=== PATIENT | female | born 1985 | race Caucasian/White ===

== ENCOUNTER 2017-02-28 21:34 | Inpatient (IN) | payer OTHER ==
--- NOTE | ~2017-02-28 | HP ---
Unit #: [id number] #: [id number] Patient: HEYDI LONDONO [id number] [place] [address] [id number] MR#: [id number] NAME: HEYDI LONDONO ROOM: P208 Age: 31 Sex: F Admission Date: 02/28/2017 : 1985 Attending Physician: Nav Hong M.D. Admitting Physician: Nav Hong M.D. Primary Care Physician: Primary Care Physician No HISTORY AND PHYSICAL HISTORY OF PRESENT ILLNESS Heydi is a 31 year old admitted to [address] [place] [address] because of her polysubstance abuse which includes snorting meth and heroin. PAST MEDICAL HISTORY Long history of poly-illicit substance abuse to include methamphetamine and heroin. PAST SURGICAL HISTORY Tubal ligation. ALLERGIES No known drug allergies. SOCIAL HISTORY Smokes less than 1 pack per day. Denies alcohol. Admits to a long history of illicit substance abuse. FAMILY HISTORY Medically noncontributory. REVIEW OF SYSTEMS CONSTITUTIONAL: No fever or chills. HEENT: Denies any sore throat, ear pain or runny nose. CARDIOVASCULAR: Denies chest pain, irregular heart rhythm or palpitations. CHEST: Denies shortness of breath or cough. No hemoptysis. GASTROINTESTINAL: Denies nausea, vomiting, diarrhea or chronic constipation. ENDOCRINE: Denies history of increased thirst or urination. No recent significant weight loss or gain. GENITOURINARY: Denies dysuria, frequency, or hematuria. SKIN: Denies any rashes. HEMATOLOGIC: Denies history of increased bleeding or bruising. MUSCULOSKELETAL: Denies any hot, swollen joints. No generalized muscle pain. NEUROLOGIC: Denies problems with vision or speech. No frequent, severe headaches. No numbness, tingling or weakness in any extremities. Denies loss of bladder or bowel control. CURRENT MEDICATIONS Detox protocol. PHYSICAL EXAMINATION Unit #: [id number] #: [id number] Patient: HEYDI LONDONO GENERAL: Alert, well-nourished, in no apparent distress. VITAL SIGNS: Blood pressure 115/76, heart rate 80, respirations 16, temperature 98.6. WEIGHT: 125. HEIGHT: 5 feet 0 inches. SKIN: Warm and dry without rash or lesion. HEENT: Normocephalic. TMs not viewed. Oral and nasal passages clear. Conjunctivae clear. PERRLA. EOMs intact. NECK: Supple without lymphadenopathy or thyromegaly. HEART: Regular rate and rhythm without murmur. LUNGS: Clear. ABDOMEN: Soft, nontender. : Not done. EXTREMITIES: No evidence of cyanosis, clubbing or edema. Moves all without focal deficit. NEUROLOGICAL: Grossly within normal limits. Cranial Nerves: II: Visual rashid are intact. III, IV AND : Extraocular movements are intact. Pupils are equal, round and reactive to light. V: Facial sensation is grossly normal. VII: Facial movements and expression are normal. VIII: Auditory acuity grossly intact. IX, X: Uvula is midline. Phonation is normal. XI: Patient shrugs shoulders and turns head normally. XII: Tongue protrudes in the midline. Sensory and Motor Function: Sensory and motor sensation is grossly normal. Motor: moves all extremities well. Coordination: Gait is normal. Deep Tendon Reflexes: Intact. IMPRESSION Psychiatric admission. RECOMMENDATIONS PSYCHIATRIC: Per psychiatrist. MEDICAL: See no contraindications to participate in facility's activities. MEDICAL PROGNOSIS Good. MEDICAL CONDITION Stable. Dictated by... Faiza Slaughter P.A.-C. for Iesha Arevalo/abdi TD: 03/01/2017 20:14 JOB #: [id number] Unit #: [id number] #: [id number] Patient: HEYDI LONDONO HISTORY AND PHYSICAL Page 1 of 1 X Faiza Slaughter HISTORY AND PHYSICAL
--- NOTE | ~2017-02-28 | PA ---
Unit #: [id number] #: [id number] Patient: URBAN LONDONO [id number] [place] [address] [id number] MR#: [id number] NAME: URBAN LONDONO ROOM: P208 Age: 31 Sex: F Admission Date: 02/28/2017 : 1985 Date of Assessment: 03/01/2017 Attending Physician: Nav Hong M.D. Admitting Physician: Nav Hong M.D. Primary Care Physician: Primary Care Physician No PSYCHIATRIC ASSESSMENT IDENTIFYING INFORMATION The patient is a 31-year-old white female admitted to the care of Dr. Hong with a history of methamphetamine and heroin abuse. CHIEF COMPLAINT "Tired of living like this." INFORMANT(S) Patient, reliability is good. HISTORY OF PRESENT ILLNESS The patient is a 31-year-old white female with no prior history of chemical dependence or other psychiatric treatment. She is admitted reporting history of methamphetamine and heroin abuse both (1) __ intranasal insufflation. The patient denies any history of intravenous drug use. The patient reports that she is "tired of living like this." Her boyfriend is currently (2) __ also uses. He is currently an inpatient at this facility also. The patient reports no current suicidal or homicidal ideation or recent changes in mood, sleep, or appetite. She does not work outside the home. She denies any history of intravenous drug use and denies use of psychoactive substances apart from those named previously as well as tobacco. PAST PSYCHIATRIC HISTORY As above. PAST MEDICAL HISTORY Noncontributory. MEDICATIONS None. ALLERGIES None. FAMILY HISTORY Noncontributory. SOCIAL HISTORY The patient lives with her mother and boyfriend who is also a heroin addict. She is not presently employed and is a smoker. MENTAL STATUS EXAMINATION Unit #: [id number] #: [id number] Patient: URBAN LONDONO Examination at this time reveals the patient to be a thin white female appearing her stated age. She appear to be in significant physical distress related to opioid withdrawal. She is alert, oriented in all spheres. Her mood is mildly dysphoric, her affect constricted. Speech is generally well coherent. There are no gross deficits in memory or cognition noted. Intelligence is judged to be in the average range based on fund of knowledge. The patient is cooperative throughout the interview. She is currently denying suicidal or homicidal ideation or psychotic features. Judgment and insight appear to be intact. ASSETS AND LIABILITIES The patient's assets: Motivation for change. Liabilities: None noted. DIAGNOSTIC IMPRESSION 1. Opioid use disorder. 2. Methamphetamine use disorder. TREATMENT PLAN The patient remains hospitalized for safety and stabilization. She has been placed on routine detoxification protocol for opioids. Dr. Hong will assume care of the patient's tomorrow, and it is expected that her stay in the hospital should be somewhere from 3 to 5 days with followup to take place through the auspices of community mental health resources. Dictated by... Russell Pryor M.D. MARY/rio TD: 03/01/2017 14:06 JOB #: [id number] PSYCHIATRIC ASSESSMENT Page 1 of 1 X Russell Pryor MD X PSYCHIATRIC ASSESSMENT
--- NOTE | ~2017-02-28 | DS ---
Unit #: [id number] #: [id number] Patient: HEYDI LONDONO [id number] [place] [address] [id number] MR#: [id number] NAME: HEYDI LONDONO ROOM: P208 Age: 31 Sex: F Admission Date: 02/28/2017 : 1985 Discharge Date: 03/03/2017 Attending Physician: Nav Hong M.D. DISCHARGE SUMMARY REASON FOR ADMISSION Heydi is a 31-year-old woman who came in reporting heroin and methamphetamine abuse. She says she is "tired living like this," and was admitted for detox. DIAGNOSTIC STUDIES LABORATORY RESULTS: Please see hospital chart. HOSPITAL COURSE The patient was admitted on the opioid detox protocol. She participated appropriately in unit groups and activities. Her boyfriend was on another unit detoxing from heroin. They remained in close contact. On the date of discharge, she contracted for safety and stated that she had achieved placement with the local chemical dependence program in conjunction with her boyfriend. DISCHARGE DIAGNOSES AXIS I: Opioid dependence with withdrawal, uncomplicated, F11.23; amphetamine abuse. AXIS II: No diagnosis. AXIS III: None acute. AXIS IV: AXIS V: DISCHARGE INSTRUCTIONS Follow up with chemical dependency program of the patient's choice. DISCHARGE MEDICATIONS None. CONDITION AT DISCHARGE Fair. PROGNOSIS Fair. DIET AND ACTIVITY Ad efren. Dictated by... Nav Hong M.D. Unit #: [id number] #: [id number] Patient: HEYDI LONDONO MRH/modl TD: 03/03/2017 14:50 JOB #: [id number] DISCHARGE SUMMARY Page 1 of 1 X Nav Hong MD X DISCHARGE SUMMARY
[2017-03-01 10:28] LABS: ALBUMIN SERUM 3.6 g/dL (3.5-5.0); BILIRUBIN,TOTAL 0.7 mg/dL (0.2-2.0); BUN/CREATININE RATIO 16.66; CREATININE SERUM 0.6 mg/dL (0.6-1.4); GLOM FILT RATE Estimated 123.2 mL/min (>60); POTASSIUM 4.4 mmol/L (3.5-5.1); PROTEIN TOTAL SERUM 5.8 g/dL (6.0-8.3)
[2017-03-01 10:49] LABS: BASOPHIL% 0.6 % (0-2.5); EOSINOPHIL# 0.1 X10e3 (0-0.7); EOSINOPHIL% 0.9 % (0.0-7.0); HEMATOCRIT 40.4 % (35.0-45.0); HEMOGLOBIN 13.5 gm/dL (12.0-16.0); LYMPHOCYTE# 3.3 X10e3 (1.0-3.5); LYMPHOCYTE% 50.5 % (17.0-45.0); MEAN CELL VOLUME 89.2 FL (83-96); MEAN CORPUSCULAR HEMOGLOBIN 29.8 PG (28-34); MEAN CORPUSCULAR HGB CONC 33.4 g/dL (30-36); MEAN PLATELET VOLUME 9.6 FL (6.5-11.5); MONOCYTE# 0.7 X10e3 (0-1.0); MONOCYTE% 10.5 % (3.0-12.0); NEUTROPHIL# 2.4 X10e3 (1.5-7.1); NEUTROPHIL% 37.5 % (40-75); PLATELET COUNT 210 X10e3 (140-420); RED BLOOD COUNT 4.52 X10e (3.90-5.30); RED CELL DISTRIBUTION WIDTH 12.3 % (11.0-15.5); WHITE BLOOD COUNT 6.5 X10e3 (4.0-10.5)
[2017-03-01 10:51] LABS: DIFF IND YES
[2017-03-01 12:11] LABS: PLATELET ESTIMATE NORMAL (NORMAL)
== END 2017-03-03 12:25 | disposition home or self-care (01) | DRG 897 ==
LOC: P2S 21:34
PROVIDERS: Psychiatry & Neurology Psychiatry
PROC: HZ2ZZZZ Detoxification Services for Substance Abuse Treatment (ICD-10-PCS; principal; 2017-02-28)
DX: F11.23 Opioid dependence with withdrawal (principal); F15.20 Other stimulant dependence, uncomplicated; F17.210 Nicotine dependence, cigarettes, uncomplicated; Z56.0 Unemployment, unspecified
CPT/HCPCS: 80053; 84703; 85025; 86592

== ENCOUNTER 2017-08-07 19:25 | Emergency (ER) | payer OTHER ==
[~2017-08-07] VITALS: Ht 167.6 cm; Wt 63.5 kg
== END 2017-08-07 21:45 | disposition left against medical advice (07) ==
LOC: CED 19:25 → CFTX 19:25 → CED 21:45
DX: Z53.21 Procedure and treatment not carried out due to patient leaving prior to being seen by health care provider (principal)